=== PATIENT | female | born 1935 | race Caucasian/White ===

== ENCOUNTER 2017-01-13 13:47 | Emergency (ER) | payer OTHER ==
[~2017-01-13] VITALS: Ht 170.2 cm; Wt 84.2 kg
[~2017-01-13 13:47] MED LIST: ACET-1256 PO; ALUMSUS2 PO; ATOR-54 PO; ATV/1 PO; PARO1TAB29 PO; POLY335019 PO; PRLSR20 PO; TRAM-10 PO
[2017-01-13 13:54] VITALS: TEMP 36.5; Ht 170.2 cm; Wt 84.2 kg
[2017-01-13 14:22] LABS: BASO % 0.2 %; BASO ABS # 0.02 K/uL (0-0.2); COMPLETE YES; EOS % 1.3 %; HEMATOCRIT 33.8 % (37-47); IG% 0.1 %; LYMPH % 26.1 %; LYMPH ABS # 2.32 K/uL (1.2-3.4); MEAN CELL VOLUME 87.3 fL (80-100); MEAN CORPUSCULAR HEMOGLOBIN 29.2 pg (25-34); MEAN CORPUSCULAR HGB CONC 33.4 g/dl (32-36); MEAN PLATELET VOLUME 9.8 fL (7.4-10.4); MONO % 7.8 %; NEUT % 64.5 %; PLATELET COUNT 240 K/uL (130-400); RED BLOOD COUNT 3.87 M/uL (4.2-5.4); WHITE BLOOD COUNT 8.89 K/uL (4.8-10.8)
[2017-01-13] MEDS ORDERED: ONDANSETRON INJ 2 MG/ML 2 ML VIAL IV STA (14:32)
[2017-01-13] MEDS ORDERED: ALUM-35 PO (14:33)
[2017-01-13] MEDS ORDERED: HYDR2.5C37 TOP (14:33)
[2017-01-13 14:34] LABS: PARTIAL THROMBOPLASTIN RATIO 0.9; PROTHROMBIN TIME (PATIENT) 10.7 SECONDS (9.0-12.0)
--- NOTE | 2017-01-13 14:34 | EMERGENCY ROOM VISIT NOTE ---
History Report prepared by Melia: Alison Jones Under the Supervision of: Dr. Jorge Archer D.O. 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 The patient states that she slid out of bed onto her right wrist. She complains of right hand pain. She denies any back pain, shoulder pain, and neck pain. Per nursing staff the patient was found up against a closet door with a deformity to the right wrist. She has a history of Alzheimer's and lives at [facility]. The staff there notes that she had increased confusion after the fall. Source of History: patient Onset: just PROJECT ADMINISTRATIVE ASSISTANT Position: other (global) Quality: other (fall) Timing: other (episode) Associated Symptoms: No back pain Note: Pt complains of right hand pain and wrist pain. She denies any shoulder pain. Review of Systems See HPI for pertinent positives & negatives. A total of 10 systems reviewed and were otherwise negative. Past Medical & Surgical Medical Problems: (1) HTN (hypertension) Surgical Problems: (1) Bilateral total knee replacement (2) S/P cholecystectomy Family History FH: cancer FH: gallbladder disease Hypertension Social History Smoking Status: Never Smoker Alcohol Use: none Drug Use: none Marital Status: Housing Status: lives with family Occupation Status: retired Current/Historical Medications Scheduled Atorvastatin (Lipitor), 20 MG PO DAILY Lorazepam (Ativan), 1 MG PO BID Omeprazole (Prilosec), 20 MG PO DAILY Paroxetine (Paxil), 40 MG PO DAILY Scheduled PRN Acetaminophen (Tylenol), 500 MG PO Q6 PRN for Pain Alum & Mag Hydrox-Simethicone (Rosanna-Lanta), 15 ML PO Q4 PRN for GI Upset Hydrocortisone 2.5% (Rectal) (Anusol-Hc 2.5%), 1 APPLN TOP BID PRN for Hemorrhoids Oxycodone Immediate Rel Tab (Roxicodone Ir), 0.5 TAB PO Q4H PRN for Severe Pain Polyethylene Glycol 3350 (Miralax), 17 GM PO DAILY PRN for Constipation Allergies Coded Allergies: Anesthetics, Halogenated (Verified Allergy, Unknown, STATED ALLERGY: ANESTHESIA GAS, 09/04/13) Mupirocin (Verified Allergy, Unknown, ERYTHEMA & BURNING SKIN, 03/12/16) INFO FROM [facility] Nitrofurantoin (Verified Allergy, Unknown, RASH, 03/12/16) INFO FROM [facility] [place] Physical Exam Vital Signs Date Time Temp Pulse Resp B/P (MAP) Pulse Ox O2 Delivery O2 Flow Rate FiO2 01/13/17 19:37 83 16 143/81 100 01/13/17 19:24 91 01/13/17 17:38 87 16 136/85 92 Room Air 01/13/17 17:27 86 18 147/78 94 Room Air 01/13/17 17:15 86 18 147/78 96 Nasal Cannula 2.0 01/13/17 17:00 87 18 150/74 98 Nasal Cannula 4.0 01/13/17 16:53 87 18 139/79 97 Nasal Cannula 4.0 01/13/17 16:51 86 160/84 98 Nasal Cannula 4.0 01/13/17 16:44 89 18 148/76 97 Nasal Cannula 4.0 01/13/17 16:39 89 18 159/84 96 Nasal Cannula 4.0 01/13/17 14:10 61 01/13/17 13:54 36.5 56 20 147/74 96 Room Air Physical Exam GENERAL: Patient is awake, alert, and in no acute distress. Patient is resting comfortably and showing no signs of anxiety. She answers questions appropriately and follows commands EYES: The conjunctivae are clear. The pupils are round and reactive. EARS, NOSE, MOUTH AND THROAT: The nose is without any evidence of any deformity. Mucous membranes are moist tongue is midline NECK: The neck is nontender and supple. RESPIRATORY: Normal respiratory effort is noted there is no evidence of wheezing rhonchi or rales CARDIOVASCULAR: Regular rate and rhythm noted there no murmurs rubs or gallops normal S1 normal S2 GASTROINTESTINAL: The abdomen is soft. Bowel sounds are present in all quadrants. Abdomen is nontender MUSCULOSKELETAL/EXTREMITIES: Significant deformity and pain over right wrist, splinting placed prior to arrival, no decreased range of motion or pain in either lower extremity. SKIN: There is no obvious evidence of any rash. There are no petechiae, pallor or cyanosis noted. Pedal edema bilaterally, small laceration between right 2nd and 3rd finger, no active bleeding. NEUROLOGIC: Patient is awake alert and oriented x3 strength is symmetric but diminished bilaterally Medical Decision & Procedures ER Provider Diagnostic Interpretation: Radiology results as stated below per my review and radiologist interpretation: PELVIS 1 OR 2 VIEW ROUTINE FINDINGS: There is an old inferior pubic ramus fracture on the left. No acute fractures are visualized. There is no SI joint diastases. There is no symphysis diastases. The bones are mildly osteopenic. IMPRESSION: No acute fractures. Electronically signed by: Jose Fonseca M.D. 01/13/2017 4:09 PM Dictated Date/Time: 01/13/2017 4:04 PM CHEST ONE VIEW PORTABLE FINDINGS: The heart is at the upper limits of normal in size. There is no failure. There is no focal pulmonary consolidation. There are no significant pleural effusions. There is minor left basilar atelectasis/scarring. There is no pneumothorax. IMPRESSION: No active disease in the chest. Electronically signed by: Jose Fonseca M.D. 01/13/2017 4:04 PM Dictated Date/Time: 01/13/2017 4:[address] HEAD WITHOUT CONTRAST (CT) FINDINGS: No intra or extra-axial mass lesions are visualized. There is no CT evidence of acute cortical infarction. There is no evidence of midline shift. There is no acute hemorrhage. No calvarial fractures are visualized. There are patchy white matter hypodensities likely on a small vessel basis. There is no evidence of pathologic ventricular dilatation. There is no evidence of acute sinusitis IMPRESSION: No acute intracranial findings Electronically signed by: Jose Fonseca M.D. 01/13/2017 3:35 PM Dictated Date/Time: 01/13/2017 3:[address] OF THE CERVICAL SPINE FINDINGS: The visualized portions of the lung apices reveal no evidence of pneumothorax. The prevertebral soft tissues are normal. No fractures or subluxations are visualized. There are multilevel degenerative changes IMPRESSION: No evidence of acute fracture or traumatic subluxation. Electronically signed by: Jose Fonseca M.D. 01/13/2017 3:45 PM Dictated Date/Time: 01/13/2017 3:45 PM RIGHT WRIST 2 VIEW DISCUSSION: The bones are osteopenic. There is an acute transverse fracture of the distal radial metaphysis 13 mm proximal to the articular surface. The distal fragment is dorsally displaced x 10 mm. There is 60 degrees of vertex volar angulation at the fracture site. IMPRESSION: Displaced angulated distal radial fracture. Electronically signed by: Jose Fonseca M.D. 01/13/2017 4:03 PM Dictated Date/Time: 01/13/2017 4:00 PM RIGHT HAND 2 VIEWS DISCUSSION: The bones are severely osteopenic. There is acute fracture of the distal radial metaphysis. Distal fragment is dorsally displaced x 10 mm. There is 67 degrees of vertex volar angulation at the fracture site. No metacarpal or phalangeal fractures are visualized. IMPRESSION: Acute displaced angulated distal radial fracture Electronically signed by: Jose Fonseca M.D. 01/13/2017 4:00 PM Dictated Date/Time: 01/13/2017 3:59 PM Laboratory Results 01/13/17 14:15 Red Blood Count 3.87, Mean Corpuscular Volume 87.3, Mean Corpuscular Hemoglobin 29.2, Mean Corpuscular Hemoglobin Concent 33.4, Mean Platelet Volume 9.8, Neutrophils (%) (Auto) 64.5, Lymphocytes (%) (Auto) 26.1, Monocytes (%) (Auto) 7.8, Eosinophils (%) (Auto) 1.3, Basophils (%) (Auto) 0.2, Neutrophils # (Auto) 5.73, Lymphocytes # (Auto) 2.32, Monocytes # (Auto) 0.69, Eosinophils # (Auto) 0.12, Basophils # (Auto) 0.02 01/13/17 14:15 Test 01/13/17 14:15 01/13/17 18:57 White Blood Count 8.89 K/uL (4.8-10.8) Red Blood Count 3.87 M/uL (4.2-5.4) Hemoglobin 11.3 g/dL (12.0-16.0) Hematocrit 33.8 % (37-47) Mean Corpuscular Volume 87.3 fL (80-100) Mean Corpuscular Hemoglobin 29.2 pg (25-34) Mean Corpuscular Hemoglobin Concent 33.4 g/dl (32-36) Platelet Count 240 K/uL (130-400) Mean Platelet Volume 9.8 fL (7.4-10.4) Neutrophils (%) (Auto) 64.5 % Lymphocytes (%) (Auto) 26.1 % Monocytes (%) (Auto) 7.8 % Eosinophils (%) (Auto) 1.3 % Basophils (%) (Auto) 0.2 % Neutrophils # (Auto) 5.73 K/uL (1.4-6.5) Lymphocytes # (Auto) 2.32 K/uL (1.2-3.4) Monocytes # (Auto) 0.69 K/uL (0.11-0.59) Eosinophils # (Auto) 0.12 K/uL (0-0.5) Basophils # (Auto) 0.02 K/uL (0-0.2) RDW Standard Deviation 48.3 fL (36.4-46.3) RDW Coefficient of Variation 15.0 % (11.5-14.5) Immature Granulocyte % (Auto) 0.1 % Immature Granulocyte # (Auto) 0.01 K/uL (0.00-0.02) Prothrombin Time 10.7 SECONDS (9.0-12.0) Prothromb Time International Ratio 1.0 (0.9-1.1) Activated Partial Thromboplast Time 23.1 SECONDS (21.0-31.0) Partial Thromboplastin Ratio 0.9 Anion Gap 10.0 mmol/L (3-11) Est Creatinine Clear Calc Drug Dose 55.3 ml/min Estimated GFR () 68.6 Estimated GFR (Non- 59.2 BUN/Creatinine Ratio 11.8 (10-20) Calcium Level 8.6 mg/dl (8.5-10.1) Total Bilirubin 0.9 mg/dl (0.2-1) Direct Bilirubin 0.2 mg/dl (0-0.2) Aspartate Amino Transf (AST/SGOT) 15 U/L (15-37) Alanine Aminotransferase (ALT/SGPT) 16 U/L (12-78) Alkaline Phosphatase 84 U/L (45-117) Total Creatine Kinase 85 U/L (26-192) Creatine Kinase MB 0.7 ng/ml (0.5-3.6) Creatine Kinase MB Ratio 0.8 (0-3.0) Troponin I < 0.015 ng/ml (0-0.045) Total Protein 7.1 gm/dl (6.4-8.2) Albumin 3.2 gm/dl (3.4-5.0) Lipase 86 U/L (73-393) Bedside Glucose 120 mg/dl (70-90) Laboratory results per my review. Medications Administered Medications (Trade) Dose Ordered Sig/Jaycbo Route Start Time Stop Time Status Last Admin Dose Admin Ondansetron HCl (Zofran Inj) 4 mg NOW STAT IV 01/13/17 14:32 01/13/17 14:33 DC 01/13/17 15:02 4 MG Procedure Procedural Sedation Indication.Right displaced colles fracture Total time: 16 minutes. Written consent was obtained after the risks and benefits were explained to the patient, including, but not limited to aspiration, allergic reaction, breathing difficulties, cardiac complications, vomiting, pain, event recall, bleeding, and /or infection. Pre-sedation examination and paperwork completed. The patient was on 100% oxygen via NRB prior to the procedure. Continous end tidal CO2 monitoring, pulse oximetry, and cardiac monitoring were utilized. Suction, airway equipment, medications, respiratory equipment, and appropriate personnel were prepared prior to the initiation of the procedure. A time out was taken. Sedation was achieved utilizing 60 mg of Propofol. After I observed the patient had reached the appropriate level of sedation the main procedure was performed without complication. Sedation was discontinued and the monitoring continued. The patient recovered quickly from the effects of the medication without complication or adverse event. ECG Indication: other (fall) Rate (beats per minute): 90 Rhythm: sinus rhythm Findings: no ectopy, other (Anterior and inferior T wave abnormalities) Comparison ECG Date: 10/07/13 Change: no significant change ED Course 1351: The patient was evaluated in room B9. A complete history and physical examination were performed. 1432: Zofran Inj 4mg IV. 1613: I spoke to Dr. Capps of orthopedics. He will be coming to see the patient. 1633: Propofol 60mg IV. 1636: I put Shokan Washington on the patient's left hand. 1650: I performed a procedural sedation. See procedure note. 1743: I reevaluated the patient and she is doing well. 1800: Upon reevaluation, the patient is doing well. I discussed the results and treatment plan with the patient. She verbalized agreement of the treatment plan. The patient was discharged home. Medical Decision Differential diagnosis: Etiologies such as fracture, dislocation, intra-abdominal, pneumothorax, intrathoracic , intracranial, neurologic, as well as other traumatic pathologies were entertained. Medication Reconciliation: I attest that I have personally reviewed the patient' s current medications list. Patient was found to have a slightly elevated blood pressure due to circumstances. I do not believe that the patient requires hypertension monitoring. The patient is a 81-year-old female who presented to the emergency department after a fall at the patient's personal fpc. The patient lives in a dementia unit and a personal fpc. She had a fall and sustained an injury to her right wrist. She had clinical deformity of the wrist but there is no witness of a fall. This reason other testing was obtained to ensure there was no other injuries. The patient required procedural sedation for this wrist fracture dislocation. I discussed this plan with the family and they were agreeable. I discussed this case with the on-call orthopedic physician who presented to the emergency department to reduce the wrist. The patient was reevaluated multiple times. She was able to be discharged back to the personal fpc. She was awake and alert on final reevaluation. The laceration on the right hand was treated with Dermabond after the wound was cleaned with normal saline solution. She tolerated this quite well. She was instructed to follow-up with the orthopedic physician this week for reevaluation. Consults Time Called: 1610 Consulting Physician: Dr. Capps - orthopedics Returned Call: [address] Capps of orthopedics. He will be coming to see the patient. Impression Primary Impression: Fall Additional Impressions: Fracture, Colles, right, closed Laceration of right hand Scribe Attestation The scribe's documentation has been prepared under my direction and personally reviewed by me in its entirety. I confirm that the note above accurately reflects all work, treatment, procedures, and medical decision making performed by me. Departure Information Dispostion Home / Self-Care Prescriptions Oxycodone Immediate Rel Tab (ROXICODONE IR) 5 Mg Tab 0.5 TAB PO Q4H Y for Severe Pain, #15 TAB Prov: Jorge Archer, DO 01/13/17 Referrals No Doctor, Assigned (PCP) Forms HOME CARE DOCUMENTATION FORM, IMPORTANT VISIT INFORMATION Patient Instructions ED Consent, Procedural Sedation, ED Fx Colles Wrist Redu Requ, My [facility] Additional Instructions Call to schedule a follow-up appointment with the orthopedist for this Sunday. Continue to use the splint and the sling as instructed. Continue all other medications as prescribed. Only use the pain medication sparingly and only if the patient can tolerate it without becoming obtunded and being at risk for fall. Problem Qualifiers Primary Impression: Fall Encounter type: initial encounter Qualified Codes: W19.XXXA - Unspecified fall, initial encounter Additional Impressions: Fracture, Colles, right, closed Encounter type: initial encounter Qualified Codes: S52.531A - Colles' fracture of right radius, initial encounter for closed fracture Laceration of right hand Encounter type: initial encounter
[2017-01-13 14:39] LABS: ALT/SGPT 16 U/L (12-78); BLOOD UREA NITROGEN 11 mg/dl (7-18); BUN/CREATININE RATIO 11.8 (10-20); CALCIUM 8.6 mg/dl (8.5-10.1); CARBON DIOXIDE 20 mmol/L (21-32); CHLORIDE 110 mmol/L (98-107); CREATININE 0.92 mg/dl (0.60-1.20); GLUCOSE 127 mg/dl (70-99); POTASSIUM 3.7 mmol/L (3.5-5.1); SODIUM 140 mmol/L (136-145)
[2017-01-13 14:44] LABS: ALKALINE PHOSPHATASE 84 U/L (45-117); AST/SGOT 15 U/L (15-37); CKMB/CK RATIO 0.8 (0-3.0)
--- NOTE | 2017-01-13 15:37 | DIAGNOSTIC IMAGING REPORT ---
CT HEAD WITHOUT CONTRAST (CT) CLINICAL HISTORY: Head trauma. 8. COMPARISON STUDY: 03/12/2016 TECHNIQUE: Axial CT of the brain is performed from the vertex to the skull base. IV contrast was not administered for this examination. CT DOSE: FINDINGS: No intra or extra-axial mass lesions are visualized. There is no CT evidence of acute cortical infarction. There is no evidence of midline shift. There is no acute hemorrhage. No calvarial fractures are visualized. There are patchy white matter hypodensities likely on a small vessel basis. There is no evidence of pathologic ventricular dilatation. There is no evidence of acute sinusitis IMPRESSION: No acute intracranial findings Electronically signed by: Jose Fonseca M.D. 01/13/2017 3:35 PM Dictated Date/Time: 01/13/2017 3:34 PM
--- NOTE | 2017-01-13 15:47 | DIAGNOSTIC IMAGING REPORT ---
CT OF THE CERVICAL SPINE CLINICAL HISTORY: Neck pain status post trauma COMPARISON STUDY: No previous studies for comparison. CT DOSE: 1613.85 mGy.cm TECHNIQUE: CT scan of the cervical spine was performed from the skull base to the thoracic inlet. Images are reviewed in the axial, sagittal, and coronal planes. IV contrast was not administered for this examination. FINDINGS: The visualized portions of the lung apices reveal no evidence of pneumothorax. The prevertebral soft tissues are normal. No fractures or subluxations are visualized. There are multilevel degenerative changes IMPRESSION: No evidence of acute fracture or traumatic subluxation. Electronically signed by: Jose Fonseca M.D. 01/13/2017 3:45 PM Dictated Date/Time: 01/13/2017 3:45 PM
--- NOTE | 2017-01-13 16:01 | DIAGNOSTIC IMAGING REPORT ---
RIGHT HAND 2 VIEWS CLINICAL HISTORY: Right hand pain status post trauma COMPARISON: None. DISCUSSION: The bones are severely osteopenic. There is acute fracture of the distal radial metaphysis. Distal fragment is dorsally displaced x 10 mm. There is 67 degrees of vertex volar angulation at the fracture site. No metacarpal or phalangeal fractures are visualized. IMPRESSION: Acute displaced angulated distal radial fracture Electronically signed by: Jose Fonseca M.D. 01/13/2017 4:00 PM Dictated Date/Time: 01/13/2017 3:59 PM
--- NOTE | 2017-01-13 16:04 | DIAGNOSTIC IMAGING REPORT ---
RIGHT WRIST 2 VIEW CLINICAL HISTORY: Right wrist pain status post trauma COMPARISON: None. DISCUSSION: The bones are osteopenic. There is an acute transverse fracture of the distal radial metaphysis 13 mm proximal to the articular surface. The distal fragment is dorsally displaced x 10 mm. There is 60 degrees of vertex volar angulation at the fracture site. IMPRESSION: Displaced angulated distal radial fracture. Electronically signed by: Jose Fonseca M.D. 01/13/2017 4:03 PM Dictated Date/Time: 01/13/2017 4:00 PM
--- NOTE | 2017-01-13 16:05 | DIAGNOSTIC IMAGING REPORT ---
CHEST ONE VIEW PORTABLE CLINICAL HISTORY: Trauma COMPARISON STUDY: 07/20/2013 FINDINGS: The heart is at the upper limits of normal in size. There is no failure. There is no focal pulmonary consolidation. There are no significant pleural effusions. There is minor left basilar atelectasis/scarring. There is no pneumothorax.[ IMPRESSION: No active disease in the chest. Electronically signed by: Jose Fonseca M.D. 01/13/2017 4:04 PM Dictated Date/Time: 01/13/2017 4:03 PM
--- NOTE | 2017-01-13 16:11 | DIAGNOSTIC IMAGING REPORT ---
PELVIS 1 OR 2 VIEW ROUTINE CLINICAL HISTORY: Pain status post trauma COMPARISON STUDY: No previous studies for comparison. FINDINGS: There is an old inferior pubic ramus fracture on the left. No acute fractures are visualized. There is no SI joint diastases. There is no symphysis diastases. The bones are mildly osteopenic. IMPRESSION: No acute fractures. Electronically signed by: Jose Fonseca M.D. 01/13/2017 4:09 PM Dictated Date/Time: 01/13/2017 4:04 PM
--- NOTE | 2017-01-13 16:25 | EMERGENCY ROOM VISIT NOTE ---
Pre-Mod Sedation Assessment General Date of Moderate Sedation: Jan 13, 2017. Vital Signs: Vital Signs Past 12 Hours Date Time Temp Pulse Resp B/P (MAP) Pulse Ox O2 Delivery O2 Flow Rate FiO2 01/13/17 14:10 61 01/13/17 13:54 36.5 56 20 147/74 96 Room Air Review Cardiovascular: regular rate, rhythm Abdomen: normal bowel sounds, non tender, soft Lungs: lungs clear Airway Class: II Pre-Sedation Airway Assessment Oral Cavity: Dentures Short Thick Neck: No Hx of Sleep Apnea: No Smoking Status: Never Smoker Mallampati Classification: Class II Procedure Planning Contraindications-for Mod Sed: None Yes Notes The planned sedation has been discussed with the patient and consent obtained. I have identified the patient, determined the appropriateness of sedation and have assessed the patient immediately prior to the procedure. All medicine(s) and interventions are by my order.
[2017-01-13] MEDS ORDERED: PROPOFOL IV EMULSION 10 MG/ML 20 ML VIAL IV ONE (16:33)
[2017-01-13 16:44] VITALS: BP 148/76; PULSE 89; O2SAT 97
[2017-01-13 16:51] VITALS: BP 160/84; PULSE 86; O2SAT 98
[2017-01-13 16:53] VITALS: BP 139/79; PULSE 87; O2SAT 97
[2017-01-13] MEDS ORDERED: OXYC1TAB3 PO (17:12)
--- NOTE | 2017-01-13 17:13 | DIAGNOSTIC IMAGING REPORT ---
RIGHT WRIST 2 VIEW CLINICAL HISTORY: Fracture status post reduction COMPARISON: 01/13/2017 DISCUSSION: There has been interval reduction of the previously described distal radial fracture. There is a residual 8 degrees dorsal tilt of the radial articular surface. Alignment appears otherwise near-anatomic. There is been application of a fiberglass cast. IMPRESSION: Interval reduction of the previously described distal radial fracture with application of a fiberglass cast Electronically signed by: Jose Fonseca M.D. 01/13/2017 5:12 PM Dictated Date/Time: 01/13/2017 5:10 PM
--- NOTE | 2017-01-13 17:17 | Consultant Recommendations ---
Aesthetics Instructor Recommendations Date of Service Jan 13, 2017. Aesthetics Instructor Recommendations Keep splint clean and dry, f/u in office on sunday [phone]
[2017-01-13 17:27] VITALS: BP 147/78; PULSE 86; O2SAT 94
--- NOTE | 2017-01-13 17:32 | EMERGENCY ROOM VISIT NOTE ---
Post-Moderate Sedation Plan General Date of Moderate Sedation Jan 13, 2017. Vital Signs: Vital Signs Past 12 Hours Date Time Temp Pulse Resp B/P (MAP) Pulse Ox O2 Delivery O2 Flow Rate FiO2 01/13/17 17:27 86 18 147/78 94 Room Air 01/13/17 17:15 86 18 147/78 96 Nasal Cannula 2.0 01/13/17 17:00 87 18 150/74 98 Nasal Cannula 4.0 01/13/17 16:53 87 18 139/79 97 Nasal Cannula 4.0 01/13/17 16:51 86 160/84 98 Nasal Cannula 4.0 01/13/17 16:44 89 18 148/76 97 Nasal Cannula 4.0 01/13/17 16:39 89 18 159/84 96 Nasal Cannula 4.0 01/13/17 14:10 61 01/13/17 13:54 36.5 56 20 147/74 96 Room Air Review - Discharge Plan Post Moderate Sedation Plan: On clinical assessment, the patient appears to have tolerated the conscious sedation without complications. Patient is recovering as anticipated. Patient will continue to be monitored by nursing and may be discharged when conscious sedation discharge criteria are met.
[2017-01-13 19:37] VITALS: BP 143/81; PULSE 83; O2SAT 100
--- NOTE | 2017-01-14 13:35 | Orthopedic Consultation ---
Orthopedic Consultation Date of Consultation: Jan 14, 2017. 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 The patient states that she slid out of bed onto her right wrist. She complains of right hand pain. She denies any back pain, shoulder pain, and neck pain. Per nursing staff the patient was found up against a closet door with a deformity to the right wrist. She has a history of Alzheimer's and lives at [facility]. The staff there notes that she had increased confusion after the fall. Past Medical/Surgical History Medical Problems: (1) Fall Status: Acute (2) Fracture, Colles, right, closed Status: Acute (3) Laceration of right hand Status: Acute Family History FH: cancer FH: gallbladder disease Hypertension Social History Smoking Status: Never Smoker Drug Use: none Marital Status: Housing Status: lives with family Occupation Status: retired Allergies Coded Allergies: Anesthetics, Halogenated (Verified Allergy, Unknown, STATED ALLERGY: ANESTHESIA GAS, 09/04/13) Mupirocin (Verified Allergy, Unknown, ERYTHEMA & BURNING SKIN, 03/12/16) INFO FROM [facility] Nitrofurantoin (Verified Allergy, Unknown, RASH, 03/12/16) INFO FROM [facility] Home Medications Scheduled Atorvastatin (Lipitor), 20 MG PO DAILY Lorazepam (Ativan), 1 MG PO BID Omeprazole (Prilosec), 20 MG PO DAILY Paroxetine (Paxil), 40 MG PO DAILY Scheduled PRN Acetaminophen (Tylenol), 500 MG PO Q6 PRN for Pain Alum & Mag Hydrox-Simethicone (Rosanna-Lanta), 15 ML PO Q4 PRN for GI Upset Hydrocortisone 2.5% (Rectal) (Anusol-Hc 2.5%), 1 APPLN TOP BID PRN for Hemorrhoids Oxycodone Immediate Rel Tab (Roxicodone Ir), 0.5 TAB PO Q4H PRN for Severe Pain Polyethylene Glycol 3350 (Miralax), 17 GM PO DAILY PRN for Constipation Physical Exam Date Time Temp Pulse Resp B/P (MAP) Pulse Ox O2 Delivery O2 Flow Rate FiO2 01/13/17 19:37 83 16 143/81 100 01/13/17 19:24 91 01/13/17 17:38 87 16 136/85 92 Room Air 01/13/17 17:27 86 18 147/78 94 Room Air 01/13/17 17:15 86 18 147/78 96 Nasal Cannula 2.0 01/13/17 17:00 87 18 150/74 98 Nasal Cannula 4.0 01/13/17 16:53 87 18 139/79 97 Nasal Cannula 4.0 01/13/17 16:51 86 160/84 98 Nasal Cannula 4.0 01/13/17 16:44 89 18 148/76 97 Nasal Cannula 4.0 01/13/17 16:39 89 18 159/84 96 Nasal Cannula 4.0 01/13/17 14:10 61 01/13/17 13:54 36.5 56 20 147/74 96 Room Air Laboratory Results Last 24 Hours Test 01/13/17 14:15 01/13/17 18:57 White Blood Count 8.89 K/uL Red Blood Count 3.87 M/uL Hemoglobin 11.3 g/dL Hematocrit 33.8 % Mean Corpuscular Volume 87.3 fL Mean Corpuscular Hemoglobin 29.2 pg Mean Corpuscular Hemoglobin Concent 33.4 g/dl Platelet Count 240 K/uL Mean Platelet Volume 9.8 fL Neutrophils (%) (Auto) 64.5 % Lymphocytes (%) (Auto) 26.1 % Monocytes (%) (Auto) 7.8 % Eosinophils (%) (Auto) 1.3 % Basophils (%) (Auto) 0.2 % Neutrophils # (Auto) 5.73 K/uL Lymphocytes # (Auto) 2.32 K/uL Monocytes # (Auto) 0.69 K/uL Eosinophils # (Auto) 0.12 K/uL Basophils # (Auto) 0.02 K/uL RDW Standard Deviation 48.3 fL RDW Coefficient of Variation 15.0 % Immature Granulocyte % (Auto) 0.1 % Immature Granulocyte # (Auto) 0.01 K/uL Prothrombin Time 10.7 SECONDS Prothromb Time International Ratio 1.0 Activated Partial Thromboplast Time 23.1 SECONDS Partial Thromboplastin Ratio 0.9 Sodium Level 140 mmol/L Potassium Level 3.7 mmol/L Chloride Level 110 mmol/L Carbon Dioxide Level 20 mmol/L Anion Gap 10.0 mmol/L Blood Urea Nitrogen 11 mg/dl Creatinine 0.92 mg/dl Est Creatinine Clear Calc Drug Dose 55.3 ml/min Estimated GFR () 68.6 Estimated GFR (Non- 59.2 BUN/Creatinine Ratio 11.8 Random Glucose 127 mg/dl Calcium Level 8.6 mg/dl Total Bilirubin 0.9 mg/dl Direct Bilirubin 0.2 mg/dl Aspartate Amino Transf (AST/SGOT) 15 U/L Alanine Aminotransferase (ALT/SGPT) 16 U/L Alkaline Phosphatase 84 U/L Total Creatine Kinase 85 U/L Creatine Kinase MB 0.7 ng/ml Creatine Kinase MB Ratio 0.8 Troponin I < 0.015 ng/ml Total Protein 7.1 gm/dl Albumin 3.2 gm/dl Lipase 86 U/L Bedside Glucose 120 mg/dl Assessment & Plan Right distal radius fracture Closed reduction and splinting in the ER Oral pain medications R arm sling F/U with Dr Capps on Sunday for casting [phone]
== END 2017-01-13 19:43 | disposition home or self-care (01) ==
LOC: EDBD 13:47 → C.EDB 13:49
DX: S52.531A Colles' fracture of right radius, initial encounter for closed fracture (principal); I10 Essential (primary) hypertension; G30.9 Alzheimer's disease, unspecified; F02.80 Dementia in other diseases classified elsewhere, unspecified severity, without behavioral disturbance, psychotic disturbance, mood disturbance, and anxiety; Z79.899 Other long term (current) drug therapy; Z96.653 Presence of artificial knee joint, bilateral; Z82.49 Family history of ischemic heart disease and other diseases of the circulatory system; Z83.79 Family history of other diseases of the digestive system; W06.XXXA Fall from bed, initial encounter; R60.9 Edema, unspecified

== ENCOUNTER 2017-05-04 07:12 | Emergency (ER) | payer OTHER ==
[~2017-05-04] VITALS: Ht 167.6 cm; Wt 80.8 kg
[~2017-05-04 07:12] MED LIST changes: +ALUM-35 PO; -ALUMSUS2 PO; +HYDR2.5C37 TOP; +OXYC1TAB3 PO; -TRAM-10 PO
[2017-05-04 07:22] VITALS: TEMP 37.3; Ht 167.6 cm; Wt 80.8 kg
--- NOTE | 2017-05-04 07:43 | EMERGENCY ROOM VISIT NOTE ---
History Report prepared by Melia: Zoila Cleary Under the Supervision of: Dr. Arie Larson M.D. 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 She states that she fell out of bed this morning. She thinks that she hit her head. She has a laceration to the back of her head. She is currently complaining of a headache and slight neck pain. She also reports lower back pain. The patient rates her pain as a 10/10 in severity. She was brought to the ED by ambulance for further evaluation. Source of History: patient Onset: DIETARY SERVICES MANAGER Position: other (global) Symptom Intensity: 10/10 Quality: other (fall) Timing: other (episode) Associated Symptoms: + headache, + neck pain, + back pain Review of Systems All systems have been listed, reviewed, and are negative other than those previously mentioned. Please see Additional Medical History Sheet. Past Medical & Surgical Medical Problems: (1) HTN (hypertension) Surgical Problems: (1) Bilateral total knee replacement (2) S/P cholecystectomy Family History FH: cancer FH: gallbladder disease Hypertension Social History Smoking Status: Never Smoker Alcohol Use: none Drug Use: none Marital Status: Housing Status: long-term Occupation Status: retired Current/Historical Medications Scheduled Atorvastatin (Lipitor), 20 MG PO DAILY Lorazepam (Ativan), 1 MG PO BID Omeprazole (Prilosec), 20 MG PO DAILY Paroxetine (Paxil), 40 MG PO DAILY Scheduled PRN Acetaminophen (Tylenol), 500 MG PO Q6 PRN for Pain Alum & Mag Hydrox-Simethicone (Rosanna-Lanta), 15 ML PO Q4 PRN for GI Upset Hydrocortisone 2.5% (Rectal) (Anusol-Hc 2.5%), 1 APPLN TOP BID PRN for Hemorrhoids Oxycodone Immediate Rel Tab (Roxicodone Ir), 2.5 MG PO Q4 PRN for Severe Pain Polyethylene Glycol 3350 (Miralax), 17 GM PO DAILY PRN for Constipation Tramadol (Ultram), 50 MG PO Q4H PRN for Pain Allergies Coded Allergies: Anesthetics, Halogenated (Verified Allergy, Unknown, STATED ALLERGY: ANESTHESIA GAS, 09/04/13) Mupirocin (Verified Allergy, Unknown, ERYTHEMA & BURNING SKIN, 03/12/16) INFO FROM [facility] [place] Nitrofurantoin (Verified Allergy, Unknown, RASH, 03/12/16) INFO FROM [facility] [place] Physical Exam Vital Signs Date Time Temp Pulse Resp B/P (MAP) Pulse Ox O2 Delivery O2 Flow Rate FiO2 05/04/17 14:09 80 18 157/87 94 Room Air 05/04/17 13:16 90 18 151/72 98 Room Air 05/04/17 11:13 87 16 141/63 97 Room Air 05/04/17 07:22 37.3 79 18 179/103 94 Room Air Physical Exam GENERAL: Patient awake, alert, oriented to place but not time or person. Patient follows commands. Patient does not appear toxic. Patient is adequately hydrated and well-nourished. SKIN: No erythema, pallor, cyanosis or rash HEENT: Normal head, 1.5 cm laceration to the mid occiput. No hemotympanum, norwood sign, raccoon sign. Pupils equal, reactive to light and accommodation. Ears normal. Oral cavity and posterior pharynx appear normal. Neck: Without adenopathy, no neck vein distention. LUNGS: Clear to auscultation. No wheezes, no rales, no rhonchi. HEART: No murmurs. No gallops. No rubs ABDOMEN: No masses, no rebound, no hepatomegaly or splenomegaly. BACK: Tenderness in lumbar spine, no break in skin, no erythema, no abrasion. EXTREMITIES: No signs of trauma. Scar on right knee and left knee. No pedal or pretibial edema. No calf or thigh tenderness. NEUROLOGIC: Patient follows all commands but is disoriented to time and person. Moves all extremities. Cranial nerves II-XII within normal limits. No gross motor sensory function deficits. Medical Decision & Procedures ER Provider Diagnostic Interpretation: Radiology results as stated below per my review and radiologist interpretation: CT SCAN OF THE LUMBAR SPINE WITHOUT IV CONTRAST CLINICAL HISTORY: Suspected fall. COMPARISON STUDY: Radiographs of the lumbar spine dated 09/04/2013. Abdominal CT dated 10/07/2013. TECHNIQUE: CT scan of the lumbar spine is performed from the lower thoracic spine to the sacrum. Images are reviewed in the axial, sagittal, and coronal planes. IV contrast was not administered for this examination. A dose lowering technique was utilized adhering to the principles of ALARA. CT DOSE: 2049.09 mGy.cm FINDINGS: The skeletal structures are osteopenic. There is a mild acute superior endplate compression fracture of L1. No retropulsed fragments are identified. Minimal paravertebral edema is noted at this level. No additional acute fracture is identified. A mild superior endplate compression deformity of L3 is chronic. Vertebral body height is otherwise maintained. Minimal anterolisthesis is seen at L4-L5. Alignment is otherwise preserved. The transverse and spinous processes are intact. No lytic or blastic lesion is seen. There is no spondylolysis. Facet arthropathy is noted in the lower lumbar spine. There is moderate disc space narrowing at L5-S1. Mild narrowing is seen at L2-L3. The disc spaces are otherwise preserved. A posterior disc osteophyte complex is seen at L2-L3. There is no CT evidence of large disc herniation or high-grade central canal stenosis. The visualized sacrum and bony pelvis appear intact. There is fatty atrophy of the paraspinous musculature. Moderate atherosclerotic calcification is noted in the abdominal aorta. IMPRESSION: 1. There is a mild acute superior endplate compression fracture of L1. No retropulsed fragments are identified. 2. No additional fracture is seen. 3. There is a mild chronic compression deformity of L3. 4. Osteopenia and spondylotic change as above. Electronically signed by: Bean Gutierrez M.D. 05/04/2017 8:31 AM Dictated Date/Time: 05/04/2017 8:[address] CT DOSE: HISTORY: fall hit head and back TECHNIQUE: Multiaxial CT images of the head were performed without the use of intravenous contrast. Automated exposure control was utilized for this study. A dose lowering technique was utilized adhering to the principles of ALARA. Comparison: Head CT 01/13/2017. Findings: The paranasal sinuses and mastoid air cells are clear. The calvarium and skull base are intact. There is no mass, hematoma, midline shift, acute infarct. White matter hypodensity is nonspecific but suggestive of microvascular ischemic change. The ventricles and sulci demonstrate mild age-related involutional changes. Mild right posterior scalp swelling. Impression: No acute intracranial abnormality. Electronically signed by: Pacheco Madera M.D. 05/04/2017 8:23 AM Dictated Date/Time: 05/04/2017 8:14 AM CERVICAL SPINE W/O CLINICAL HISTORY: 81 years-old Female with fall hit head and back. Acute neck pain status post fall COMPARISON: CT cervical spine 01/13/2017 TECHNIQUE: Multiple axial CT images of the cervical spine were obtained without contrast. A dose lowering technique was utilized adhering to the principles of ALARA. FINDINGS: The bones are moderately demineralized. No acute fracture or subluxation identified. Mild convex left curvature of the cervical spine. There are multiple advanced degenerative changes consisting of facet arthrosis, posterior disc osteophyte complex formations and advanced intervertebral disc space narrowing. These changes result in varying degrees of central canal and foraminal narrowing. There is mild to moderate central canal narrowing at C5-C6 secondary to broad-based posterior disc ossify complex relation. Severe facet arthrosis on the left contributes to at least moderate left foraminal narrowing. There is partial bony fusion of the facets on the right at C3-C4. Imaged lung apices are clear. Soft tissues are unremarkable. Atherosclerotic plaquing of the aortic. Imaged posterior fossa is unremarkable with atrophy. IMPRESSION: 1. No acute cervical spine fracture or subluxation. 2. Multilevel advanced discogenic degenerative changes, spondylitic spurring and facet arthropathy. The above report was generated using voice recognition software. It may contain grammatical, syntax or spelling errors. Electronically signed by: Hebert Andino M.D. 05/04/2017 8:22 AM Dictated Date/Time: 05/04/2017 8:14 AM Laboratory Results 05/04/17 07:40 05/04/17 07:40 Test 05/04/17 07:40 05/04/17 08:45 Red Blood Count 4.06 M/uL (4.2-5.4) Mean Corpuscular Volume 88.9 fL (80-100) Mean Corpuscular Hemoglobin 29.6 pg (25-34) Mean Corpuscular Hemoglobin Concent 33.2 g/dl (32-36) RDW Standard Deviation 47.6 fL (36.4-46.3) RDW Coefficient of Variation 14.5 % (11.5-14.5) Mean Platelet Volume 10.3 fL (7.4-10.4) Anion Gap 5.0 mmol/L (3-11) Est Creatinine Clear Calc Drug Dose 54.9 ml/min Estimated GFR () 71.4 Estimated GFR (Non- 61.6 BUN/Creatinine Ratio 15.1 (10-20) Calcium Level 8.6 mg/dl (8.5-10.1) Troponin I < 0.015 ng/ml (0-0.045) Urine Color YELLOW Urine Appearance CLEAR (CLEAR) Urine pH 7.5 (4.5-7.5) Urine Specific Hurst 1.012 (1.000-1.030) Urine Protein NEG (NEG) Urine Glucose (UA) NEG (NEG) Urine Ketones NEG (NEG) Urine Occult Blood NEG (NEG) Urine Nitrite NEG (NEG) Urine Bilirubin NEG (NEG) Urine Urobilinogen NEG (NEG) Urine Leukocyte Esterase SMALL (NEG) Urine WBC (Auto) 1-5 /hpf (0-5) Urine RBC (Auto) 0-4 /hpf (0-4) Urine Hyaline Casts (Auto) 0 /lpf (0-5) Urine Epithelial Cells (Auto) 5-10 /lpf (0-5) Urine Bacteria (Auto) NEG (NEG) Laboratory results as stated above per my review. Medications Administered Medications (Trade) Dose Ordered Sig/Jaycob Route Start Time Stop Time Status Last Admin Dose Admin Acetaminophen (Tylenol Tab) 1,000 mg NOW STAT PO 05/04/17 08:18 05/04/17 08:19 DC 05/04/17 08:29 1,000 MG Tramadol HCl (Ultram Tab) 50 mg NOW STAT PO 05/04/17 13:01 05/04/17 13:03 DC 05/04/17 13:16 50 MG ECG Indication: other Rate (beats per minute): 72 Rhythm: normal sinus Findings: no acute ischemic change, no ectopy ED Course 0722: Past medical records reviewed. The patient was evaluated in room B2. A complete history and physical examination was performed. 0818: Tylenol 1000 mg PO 0953: I reevaluated the patient and she is doing well. I spoke with the patient and her family about the possibility of going to [facility] for rehab. The manager case management will discuss this further with them. 1027: I reassessed the patient at this time. She is feeling better and resting comfortably. I discussed the results and treatment plan with the patient and her family. I answered all pertaining questions that they had. They expressed understanding and verbalized agreement. The patient will be discharged back to [facility] at this time. 1150: [facility] is unsure if they are able to accept the patient to return to their facility. 1238: The patient is resting comfortably. [facility] will accept the patient with instructions for further PT/OT follow-up regarding her injury. Medical Decision Nurses notes reviewed. Medical history sheet reviewed. Differential diagnosis includes but is not limited to: closed head injury, cervical spine injury, fall , lumbar spine injury, arrhythmia, metabolic disorder. The patient is here after what sounds like a mechanical fall. This was unwitnessed. CT of her head neck and lumbar spine were obtained. Please see above. Patient does not appear to have an intracranial injury or cervical spine injury. The patient does appear to have a new L1 fracture. I discussed care with the patient and with the patient's [id number]. We did discuss options concerning [facility]. The [id number] elected to take her back to the [facility]. The patient has a small laceration on her occiput with well approximated edges. I do not believe that requires sutures or jose eduardo. There are no foreign bodies or signs of infection. We've involved case management on this case. [place] Drug Monitoring Program Search Results: patient reviewed within database Medication Reconcilliation Current Medication List: was personally reviewed by me Blood Pressure Screening Patient's blood pressure: Elevated blood pressure Blood pressure disposition: Referred to PCP Impression Primary Impression: Lumbar vertebral fracture Additional Impressions: Fall Scalp laceration Dementia Scribe Attestation The scribe's documentation has been prepared under my direction and personally reviewed by me in its entirety. I confirm that the note above accurately reflects all work, treatment, procedures, and medical decision making performed by me. Departure Information Dispostion Home / Self-Care Prescriptions Tramadol (Ultram) 50 Mg Tab 50 MG PO Q4H Y for Pain, #20 TAB Prov: Arie Larson M.D. 05/04/17 Forms HOME CARE DOCUMENTATION FORM, IMPORTANT VISIT INFORMATION Patient Instructions My [facility] Additional Instructions Tylenol as needed for pain. Clean scalp laceration with dilute peroxide once daily and cover with bacitracin ointment. Return here if he notes any signs of infection. PT and OT evaluation within the next 48 hours. Follow-up with the primary care physician regarding her lumbar fracture. Problem Qualifiers Additional Impressions: Fall Encounter type: initial encounter Qualified Codes: W19.XXXA - Unspecified fall, initial encounter Scalp laceration Encounter type: initial encounter Qualified Codes: S01.01XA - Laceration without foreign body of scalp, initial encounter
[2017-05-04 07:55] LABS: HEMATOCRIT 36.1 % (37-47); MEAN CELL VOLUME 88.9 fL (80-100); MEAN CORPUSCULAR HEMOGLOBIN 29.6 pg (25-34); MEAN CORPUSCULAR HGB CONC 33.2 g/dl (32-36); MEAN PLATELET VOLUME 10.3 fL (7.4-10.4); PLATELET COUNT 236 K/uL (130-400); RED BLOOD COUNT 4.06 M/uL (4.2-5.4); WHITE BLOOD COUNT 5.67 K/uL (4.8-10.8)
[2017-05-04 08:16] LABS: BLOOD UREA NITROGEN 13 mg/dl (7-18); BUN/CREATININE RATIO 15.1 (10-20); CALCIUM 8.6 mg/dl (8.5-10.1); CARBON DIOXIDE 27 mmol/L (21-32); CHLORIDE 110 mmol/L (98-107); CREATININE 0.89 mg/dl (0.60-1.20); GLUCOSE 98 mg/dl (70-99); POTASSIUM 3.7 mmol/L (3.5-5.1); SODIUM 142 mmol/L (136-145)
[2017-05-04] MEDS ORDERED: ACETAMINOPHEN 500 MG TAB PO STA (08:18)
--- NOTE | 2017-05-04 08:23 | DIAGNOSTIC IMAGING REPORT ---
CERVICAL SPINE W/O CLINICAL HISTORY: 81 years-old Female with fall hit head and back. Acute neck pain status post fall COMPARISON: CT cervical spine 01/13/2017 TECHNIQUE: Multiple axial CT images of the cervical spine were obtained without contrast. A dose lowering technique was utilized adhering to the principles of ALARA. FINDINGS: The bones are moderately demineralized. No acute fracture or subluxation identified. Mild convex left curvature of the cervical spine. There are multiple advanced degenerative changes consisting of facet arthrosis, posterior disc osteophyte complex formations and advanced intervertebral disc space narrowing. These changes result in varying degrees of central canal and foraminal narrowing. There is mild to moderate central canal narrowing at C5-C6 secondary to broad-based posterior disc ossify complex relation. Severe facet arthrosis on the left contributes to at least moderate left foraminal narrowing. There is partial bony fusion of the facets on the right at C3-C4. Imaged lung apices are clear. Soft tissues are unremarkable. Atherosclerotic plaquing of the aortic. Imaged posterior fossa is unremarkable with atrophy. IMPRESSION: 1. No acute cervical spine fracture or subluxation. 2. Multilevel advanced discogenic degenerative changes, spondylitic spurring and facet arthropathy. The above report was generated using voice recognition software. It may contain grammatical, syntax or spelling errors. Electronically signed by: Hebert Andino M.D. 05/04/2017 8:22 AM Dictated Date/Time: 05/04/2017 8:14 AM
--- NOTE | 2017-05-04 08:24 | DIAGNOSTIC IMAGING REPORT ---
HEAD CT NONCONTRAST CT DOSE: HISTORY: fall hit head and back TECHNIQUE: Multiaxial CT images of the head were performed without the use of intravenous contrast. Automated exposure control was utilized for this study. A dose lowering technique was utilized adhering to the principles of ALARA. Comparison: Head CT 01/13/2017. Findings: The paranasal sinuses and mastoid air cells are clear. The calvarium and skull base are intact. There is no mass, hematoma, midline shift, acute infarct. White matter hypodensity is nonspecific but suggestive of microvascular ischemic change. The ventricles and sulci demonstrate mild age-related involutional changes. Mild right posterior scalp swelling. Impression: No acute intracranial abnormality. Electronically signed by: Pacheco Madera M.D. 05/04/2017 8:23 AM Dictated Date/Time: 05/04/2017 8:14 AM
--- NOTE | 2017-05-04 08:32 | DIAGNOSTIC IMAGING REPORT ---
CT SCAN OF THE LUMBAR SPINE WITHOUT IV CONTRAST CLINICAL HISTORY: Suspected fall. COMPARISON STUDY: Radiographs of the lumbar spine dated 09/04/2013. Abdominal CT dated 10/07/2013. TECHNIQUE: CT scan of the lumbar spine is performed from the lower thoracic spine to the sacrum. Images are reviewed in the axial, sagittal, and coronal planes. IV contrast was not administered for this examination. A dose lowering technique was utilized adhering to the principles of ALARA. CT DOSE: 2049.09 mGy.cm FINDINGS: The skeletal structures are osteopenic. There is a mild acute superior endplate compression fracture of L1. No retropulsed fragments are identified. Minimal paravertebral edema is noted at this level. No additional acute fracture is identified. A mild superior endplate compression deformity of L3 is chronic. Vertebral body height is otherwise maintained. Minimal anterolisthesis is seen at L4-L5. Alignment is otherwise preserved. The transverse and spinous processes are intact. No lytic or blastic lesion is seen. There is no spondylolysis. Facet arthropathy is noted in the lower lumbar spine. There is moderate disc space narrowing at L5-S1. Mild narrowing is seen at L2-L3. The disc spaces are otherwise preserved. A posterior disc osteophyte complex is seen at L2-L3. There is no CT evidence of large disc herniation or high-grade central canal stenosis. The visualized sacrum and bony pelvis appear intact. There is fatty atrophy of the paraspinous musculature. Moderate atherosclerotic calcification is noted in the abdominal aorta. IMPRESSION: 1. There is a mild acute superior endplate compression fracture of L1. No retropulsed fragments are identified. 2. No additional fracture is seen. 3. There is a mild chronic compression deformity of L3. 4. Osteopenia and spondylotic change as above. Electronically signed by: Bean Gutierrez M.D. 05/04/2017 8:31 AM Dictated Date/Time: 05/04/2017 8:16 AM
[2017-05-04] MEDS ORDERED: OXYC1TAB3 PO (08:42)
[2017-05-04 09:12] LABS: URINE APPEARANCE CLEAR (CLEAR); URINE BILIRUBIN NEG (NEG); URINE COLOR YELLOW; URINE NITRITE NEG (NEG); URINE PH 7.5 (4.5-7.5); URINE SPECIFIC GRAVITY 1.012 (1.000-1.030); UROBILINOGEN NEG (NEG); ZZUR CULT IF INDIC CLEAN CATCH NO
[2017-05-04 09:13] LABS: MANUAL MICROSCOPIC REQUIRED? NO; REVIEW REQ? NO
[2017-05-04] MEDS ORDERED: TRAMADOL HCL 50 MG TAB PO STA (13:01)
[2017-05-04] MEDS ORDERED: TRAM-10 PO (13:04)
[2017-05-04 14:09] VITALS: BP 157/87; PULSE 80; O2SAT 94
== END 2017-05-04 14:19 | disposition home or self-care (01) ==
LOC: EDBD 07:12 → C.EDB 07:14
DX: S32.019A Unspecified fracture of first lumbar vertebra, initial encounter for closed fracture (principal); S01.01XA Laceration without foreign body of scalp, initial encounter; W06.XXXA Fall from bed, initial encounter; I10 Essential (primary) hypertension; Z90.49 Acquired absence of other specified parts of digestive tract; Z98.890 Other specified postprocedural states; Z79.899 Other long term (current) drug therapy; Z88.8 Allergy status to other drugs, medicaments and biological substances; Z80.9 Family history of malignant neoplasm, unspecified; Z83.79 Family history of other diseases of the digestive system; Z82.49 Family history of ischemic heart disease and other diseases of the circulatory system

== ENCOUNTER → 2018-02-05 | Outpatient (CLI) | payer OTHER ==
[~2018-02-05] MED LIST changes: +OXYC-737 PO; -OXYC1TAB3 PO
[2018-02-05 11:44] LABS: BASO % 0.2 %; BASO ABS # 0.01 K/uL (0-0.2); EOS % 3.1 %; EOS ABS # 0.14 K/uL (0-0.5); HEMATOCRIT 32.8 % (37-47); HEMOGLOBIN 10.7 g/dL (12.0-16.0); IG# 0.01 K/uL (0.00-0.02); LYMPH % 31.1 %; LYMPH ABS # 1.41 K/uL (1.2-3.4); MEAN CELL VOLUME 91.4 fL (80-100); MEAN CORPUSCULAR HEMOGLOBIN 29.8 pg (25-34); MEAN CORPUSCULAR HGB CONC 32.6 g/dl (32-36); MEAN PLATELET VOLUME 11.3 fL (7.4-10.4); MONO % 8.6 %; MONO ABS # 0.39 K/uL (0.11-0.59); NEUT % 56.8 %; NEUT ABS # 2.57 K/uL (1.4-6.5); PLATELET COUNT 225 K/uL (130-400); RED CELL DISTRIBUTION WIDTH CV 14.9 % (11.5-14.5); RED CELL DISTRIBUTION WIDTH SD 50.6 fL (36.4-46.3); WHITE BLOOD COUNT 4.53 K/uL (4.8-10.8)
== END ==
LOC: C.LABCC 09:39
PROVIDERS: ATTEND Internal Medicine
DX: D64.9 Anemia, unspecified (principal)